=== PATIENT | male | born 1985 | race Caucasian/White ===

== ENCOUNTER 2021-01-11 09:26 | Inpatient (IN) | payer OTHER ==
[~2021-01-11] VITALS: Ht 175.3 cm; Wt 111.6 kg
[2021-01-11 09:47] VITALS: BP 146/81
[2021-01-11 10:16] LABS: ABSOLUTE LYMPHOCYTES 0.8 thou/uL (0.8-5.3); ABSOLUTE MONOCYTES 0.3 thou/uL (0.0-1.2); ABSOLUTE NEUTROPHILS 4.7 thou/uL (1.6-8.1); BASOPHILS 0.6 %; HEMATOCRIT 43.9 % (42.0-52.0); HEMOGLOBIN 15.1 gm/dL (14.0-18.0); LYMPHOCYTES 13.7 %; MCH 28.7 pg (26.0-34.0); MCHC 34.5 g/dL (28.0-37.0); MCV 83.3 fL (80.0-100.0); MONOCYTES 4.7 %; MPV 8.6 fl. (7.2-11.1); NUCLEATED RBCS 0 /100WBC; PLATELET COUNT* 146 thou/uL (150-400); RBC 5.27 mil/uL (4.50-6.00); RDW-CV 12.8 % (10.5-14.5); WBC 5.8 thou/uL (4.0-11.0)
[2021-01-11 10:29] LABS: CREATININE 1.3 mg/dL (0.6-1.3); POTASSIUM 3.7 mmol/L (3.5-5.1)
[2021-01-11 10:34] LABS: ALBUMIN 3.9 g/dL (3.4-5.0); TOTAL BILIRUBIN 0.6 mg/dL (<0.1-1.0); TOTAL PROTEIN 7.8 g/dL (6.4-8.2)
[2021-01-11 14:15] VITALS: BP 130/79
[2021-01-11 14:40] VITALS: BP 124/77
[2021-01-11 20:03] VITALS: BP 108/78
[2021-01-12 00:06] VITALS: BP 116/69
[2021-01-12 04:00] VITALS: BP 109/79
[2021-01-12 07:25] VITALS: BP 109/88
[2021-01-12 08:50] LABS: HEMATOCRIT 42.3 % (42.0-52.0); HEMOGLOBIN 14.7 gm/dL (14.0-18.0); MCH 28.9 pg (26.0-34.0); MCHC 34.9 g/dL (28.0-37.0); MCV 82.9 fL (80.0-100.0); MPV 8.3 fl. (7.2-11.1); NUCLEATED RBCS 0 /100WBC; PLATELET COUNT* 179 thou/uL (150-400); RDW-CV 13.1 % (10.5-14.5); WBC 9.3 thou/uL (4.0-11.0)
[2021-01-12 09:03] LABS: APTT 25.9 Seconds (25.0-31.3); PROTIME 10.3 Seconds (9.20-11.50)
[2021-01-12 09:04] LABS: ALBUMIN 3.2 g/dL (3.4-5.0); CALCIUM 7.9 mg/dL (8.5-10.1); POTASSIUM 3.9 mmol/L (3.5-5.1); TOTAL BILIRUBIN 0.4 mg/dL (<0.1-1.0); TOTAL PROTEIN 7.3 g/dL (6.4-8.2)
[2021-01-12 10:48] LABS: ABSOLUTE MONOCYTES 0.1 thou/uL (0.0-1.2); ABSOLUTE NEUTROPHILS 8.2 thou/uL (1.6-8.1); METAMYELOCYTES 1 %
--- NOTE | 2021-01-12 11:03 | EKG ---
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1985 Requested By: Trevor Fuentes Order Number: [id number] Bernard MD: Michael Broderick Measurements Intervals [place] Rate: 71 P: 9 ID: [id number] QRS: 22 QRSD: 93 T: 2 QT: 379 QTc: 412 Interpretive Statements Sinus rhythm Probable left atrial enlargement No previous ECG available for comparison Electronically Signed On 01-12-2021 11:03:08 CDT by Michael Broderick [email or web address] <ELECTRONICALLY SIGNED> By: Michael Broderick MD, [facility] 01/12/21 1103 1046 1046 Michael Broderick MD, [facility] /EPI
[2021-01-12 11:30] VITALS: BP 125/77
[2021-01-12 15:57] VITALS: BP 127/80
[2021-01-12 20:00] VITALS: BP 119/71
[2021-01-13] VITALS (7 sets, daily range): BP systolic 112–127; BP diastolic 62–82
[2021-01-13 05:59] LABS: HEMATOCRIT 42.4 % (42.0-52.0); HEMOGLOBIN 14.6 gm/dL (14.0-18.0); MCH 28.8 pg (26.0-34.0); MCHC 34.4 g/dL (28.0-37.0); MCV 83.6 fL (80.0-100.0); MPV 8.1 fl. (7.2-11.1); RBC 5.07 mil/uL (4.50-6.00); RDW-CV 13.2 % (10.5-14.5); WBC 7.7 thou/uL (4.0-11.0)
[2021-01-13 06:10] LABS: POTASSIUM 4.1 mmol/L (3.5-5.1)
[2021-01-14] VITALS (8 sets, daily range): BP systolic 100–139; BP diastolic 54–81
[2021-01-14 09:08] LABS: BE 2.5 mmol/L (-2 to +3); pH 7.479 (7.340-7.450)
[2021-01-14 09:09] LABS: PO2 45.2 mmHg (75.0-100.0)
[2021-01-14 10:52] LABS: BE 4.4 mmol/L (-2 to +3); PCO2 45.4 mmHg (35.0-45.0); PO2 68.9 mmHg (75.0-100.0); pH 7.433 (7.340-7.450)
[2021-01-14 10:59] LABS: ABSOLUTE BASOPHILS 0.1 thou/uL (0.0-0.2); ABSOLUTE LYMPHOCYTES 2.3 thou/uL (0.8-5.3); ABSOLUTE NEUTROPHILS 7.1 thou/uL (1.6-8.1); BASOPHILS 0.6 %; LYMPHOCYTES 21.9 %; MCHC 34.5 g/dL (28.0-37.0); MONOCYTES 9.4 %; MPV 8.8 fl. (7.2-11.1); NUCLEATED RBCS 0 /100WBC; POLYS 68.1 %; RBC 5.95 mil/uL (4.50-6.00); RDW-CV 13.2 % (10.5-14.5); WBC 10.5 thou/uL (4.0-11.0)
[2021-01-14 11:03] LABS: HEMOGLOBIN 17.3 gm/dL (14.0-18.0); PLATELET COUNT* 343 thou/uL (150-400)
[2021-01-14 11:12] LABS: ALBUMIN 3.9 g/dL (3.4-5.0); CALCIUM 8.8 mg/dL (8.5-10.1); CREATININE 1.1 mg/dL (0.6-1.3); MAGNESIUM 2.3 mg/dL (1.8-2.4); POTASSIUM 3.9 mmol/L (3.5-5.1); TOTAL BILIRUBIN 0.6 mg/dL (<0.1-1.0); TOTAL PROTEIN 8.4 g/dL (6.4-8.2)
--- NOTE | 2021-01-14 21:14 | CON ---
[address] [address] CONSULTATION Name: MIGUEL ALVES Room: [address] IN [facility]#: [id number] Admission: 01/11/21 Attend Phys: Jt Glover Discharge: Date of : 89 Report #: [id number] THIS REPORT FOR: cc: JAYE - [place] family physician/PCP FAM - No family physician/PCP Samson Whitlock MD ~ DATE OF CONSULTATION: 01/14/2021 REQUESTING PHYSICIAN: Consult has been requested by Dr. Fuentes. INDICATION FOR CONSULTATION: Acute hypoxemic respiratory failure secondary to COVID-19. HISTORY OF PRESENT ILLNESS: A 35-year-old gentleman, he does not speak Luxembourgish, which does limit communication. He does have a history of obesity. His body mass index is 36. Otherwise, he does not have any other significant past medical history. He is not vaccinated for COVID-19. He now was admitted 2 days ago. Presentation was with shortness of breath. He also was having a fever, had chills, was coughing, not much sputum, was dizzy and also had loss of smell. He stated that he was having these symptoms for 2 days. He also had been having headaches. On initial presentation, the patient was hypoxemic on room air; however, was maintaining O2 saturation in the low 90s on 2 liters nasal cannula. Initial O2 saturation on room air was 87%. Since then despite administration of dexamethasone at 6 mg a day and administration of Actemra and a unit of convalescent plasma, there has been a progressive deterioration in his condition. This morning, he needed to be on a BiPAP for shortness of breath, was subsequently being switched over to a heated high-flow nasal cannula when he in fact had a cardiac arrest. There is asystole documented on the rhythm strips as he was on telemetry. The patient briefly did receive chest compressions; however, quickly returned consciousness subsequently without administration of any medications. Since then, the patient has been on BiPAP of 15/7 with 100% FIO2. He is drowsy, but he is fully arousable. He is maintaining O2 saturation with this. He in fact was able to come off the BiPAP long enough to be able to have lunch. He was on a heated high-flow nasal cannula at that time, but he did have lunch this afternoon. At this time point, he is again on 100% BiPAP. He appears to be comfortable on this, is saturating around 94-95%. He continues to remain bradycardic, heart rate is around 53-54. There are occasional pauses reported by the nursing staff; however, I did not see them at the time of my review of the telemetry. REVIEW OF SYSTEMS: The patient's review of systems for 12 [place] [address] CONSULTATION Name: MIGUEL ALVES Room: [address] IN [facility]#: [id number] Admission: 01/11/21 Attend Phys: Jt Glover Discharge: Date of : 89 Report #: [id number] except as mentioned above; however, communication is limited by the language barrier. PAST MEDICAL HISTORY: Obesity, body mass index 36. SOCIAL HISTORY: There is no known history of smoking, ethanol abuse or drug abuse; however, I am not able to ask the patient directly. CURRENT MEDICATIONS: List in [facility] reviewed. HOME MEDICATIONS: He was on no medications at home. ALLERGIES: REPORTEDLY ALLERGIC TO PENICILLINS. I AM NOT AWARE OF THE REACTION. FAMILY HISTORY: in fact is vaccinated for COVID-19. There is no other pertinent family history. PHYSICAL EXAMINATION: GENERAL: He is drowsy. He is fully arousable. He appears to be alert, awake and oriented; however, on account of the fact that he only speaks Bangladeshi, I was able to communicate with him only to a limited extent. VITAL SIGNS: He has a pulse of 52 and a blood pressure of 113/77. He is saturating around 94-95% on a BiPAP of 15/7 100% FIO2, respiratory rate is in the low 20s. He is afebrile now with a temperature of 36.9. Body mass index 36. HEENT: Head is normocephalic and atraumatic. He appears to have a narrow airway. Throat examination, however, is limited. NECK: Does not show raised JVP, asymmetry, mass or lymph nodes. CHEST: Symmetrical expansion on inspection and palpation. On auscultation, breath sounds are bilaterally equal, but decreased. I do not hear any added sounds. HEART: Regular. There is no murmur. ABDOMEN: Mildly distended, nontender. EXTREMITIES: Lower extremities show trace edema. No calf tenderness. SKIN: Dry and intact. NEUROLOGIC: Moves all extremities bilaterally equally and spontaneously with no focal deficit identified. LABORATORY DATA: The patient's chest x-ray shows extensive bilateral infiltrates consistent with ARDS secondary to COVID-19. The patient's lab work is in [facility] and this is also reviewed. Arterial blood gas consistent with acute hypoxemic respiratory failure with a possible component of hypercarbic respiratory failure as well in [facility] reviewed. COVID-19 antigen is positive. D-dimer is only mildly elevated to 0.59. [address] [address] CONSULTATION Name: MIGUEL ALVES Room: [address] IN .R.#: [id number] Admission: 01/11/21 Attend Phys: Jt Glover Discharge: Date of : 89 Report #: [id number] ASSESSMENT AND PLAN: 1. Acute hypoxemic respiratory failure secondary to COVID-19. Continue with BiPAP at current settings while asleep. Also, reasonable to use BiPAP while awake p.r.n. as well. At this time, he does appear to be resting comfortably, although awake on the BiPAP, could be taken off BiPAP and placed on a heated high-flow nasal cannula while awake if tolerated. 2. COVID-19 leading to acute respiratory distress syndrome. Due to worsening hypoxemia, I went ahead and gave him additional dose of dexamethasone at 10 mg and increased his scheduled dose to 8 mg b.i.d. beginning tomorrow. He has already received a dose of Actemra. He remains on remdesivir, which I would also recommend continuing. Watch LFTs. He has received 1 unit of convalescent plasma already. I do not feel strongly either way regarding holding off or administering a second unit. 3. Pulmonary infiltrates. I also agree with Levaquin covering for secondary bacterial infections as currently ordered. We will give him Lactinex for Clostridium difficile prophylaxis. 4. Bradycardia/brief episode of asystole. Recommend watching heart rate. I did in fact order scheduled bronchodilators for treatment of his respiratory failure, which likely will increase his heart rate as well. We will do an echo as well. If he remains bradycardic or if he continues to have pauses on the EKG, then I recommend obtaining a Cardiology consult as well. 5. Mild fluid overload. He received a dose of Lasix today. I agree with the same. We will give him potassium to avoid a drop in potassium level. We will reassess tomorrow for more diuresis. 6. Mild elevation in D-dimer/evaluation for thromboembolic phenomena. We will do venous Dopplers. We are also doing an echo as above. I increased his Lovenox to intermediate dose. My suspicion of pulmonary emboli in fact is low at this time and he also is not stable for transport to CT. Therefore, for now, we will hold off on CT chest. 7. Gastrointestinal prophylaxis. We will order Protonix. 8. Hyperglycemia. He is on an insulin sliding scale. 9. Obesity/suspected underlying obstructive sleep apnea. He is on BiPAP while asleep and p.r.n. as above. The patient is critically ill at this time. Total time spent providing critical care to him today is around 41 minutes. <ELECTRONICALLY SIGNED> By: Samson Whitlock MD 01/14/21 2114 1408 1554Act Whitlock MD /nt
[2021-01-15 00:27] VITALS: BP 107/66
[2021-01-15 04:06] LABS: ABSOLUTE LYMPHOCYTES 0.7 thou/uL (0.8-5.3); ABSOLUTE MONOCYTES 0.8 thou/uL (0.0-1.2); ABSOLUTE NEUTROPHILS 6.5 thou/uL (1.6-8.1); BASOPHILS 0.2 %; HEMATOCRIT 46.6 % (42.0-52.0); HEMOGLOBIN 16.1 gm/dL (14.0-18.0); LYMPHOCYTES 8.2 %; MCH 28.7 pg (26.0-34.0); MCHC 34.6 g/dL (28.0-37.0); MCV 82.9 fL (80.0-100.0); MONOCYTES 10.2 %; MPV 8.2 fl. (7.2-11.1); NUCLEATED RBCS 0 /100WBC; PLATELET COUNT* 322 thou/uL (150-400); POLYS 81.4 %; RBC 5.62 mil/uL (4.50-6.00); RDW-CV 13.3 % (10.5-14.5)
[2021-01-15 04:33] LABS: ALBUMIN 3.6 g/dL (3.4-5.0); CALCIUM 8.4 mg/dL (8.5-10.1); CREATININE 1.2 mg/dL (0.6-1.3); MAGNESIUM 2.5 mg/dL (1.8-2.4); POTASSIUM 4.1 mmol/L (3.5-5.1); TOTAL BILIRUBIN 0.6 mg/dL (<0.1-1.0); TOTAL PROTEIN 7.8 g/dL (6.4-8.2)
[2021-01-15 04:38] VITALS: BP 136/63
[2021-01-15 08:27] VITALS: BP 114/69
--- NOTE | 2021-01-15 11:43 | EKG ---
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1985 Requested By: Trevor Fuentes Order Number: [id number] Reading MD: Yordy Muñiz Measurements Intervals [place] Rate: 45 P: 26 PA: 123 QRS: 53 QRSD: 107 T: 28 QT: 482 QTc: 417 Interpretive Statements Sinus bradycardia Baseline wander in lead(s) V3 Compared to ECG 01/12/2021 10:46:39 Sinus rate has decreased Electronically Signed On 01-15-2021 11:43:07 CDT by Yordy Muñiz [email or web address] <ELECTRONICALLY SIGNED> By: Yordy Muñiz MD, [facility] 01/15/21 1143 6 6 Yordy Muñiz MD, [facility] /EPI
[2021-01-15 12:00] VITALS: BP 122/74
--- NOTE | 2021-01-15 13:55 | 2DMMODE ---
[place] [address] 2 D/M-MODE ECHOCARDIOGRAM Name: MIGUEL ALVES Room: [address] IN [facility]#: [id number] Admission: 01/11/21 Attend Phys: Trevor Fuentes Discharge: Date of : 89 Date of Service: 01/15/21 1355 Report #: [id number] THIS REPORT FOR: cc: JAYE - No family physician/PCP JAYE - No family physician/PCP Yordy Muñiz MD [facility] ~ APPROVED REPORT Study performed: 01/15/2021 10:06:13 EXAM: Comprehensive 2D, Doppler, and color-flow Echocardiogram Patient Location: In-Patient Room #: [facility] Status: routine BSA: 2.26 HR: 59 bpm BP: 114/69 mmHg Rhythm: NSR Other Information Study Quality: Good Indications Dyspnea 2D Dimensions IVSd: 10.99 (7-11mm) LVOT Diam: 21.44 (18-24mm) LVDd: 46.17 mm PWd: 10.20 (7-11mm) Ascending Ao: 27.62 (22-36mm) LVDs: 30.13 (25-40mm) Aortic Root: 30.02 mm Volumes Left Atrial Volume (Systole) LA ESV Index: 13.20 mL/m2 Aortic Valve AoV Peak Hector.: 1.27 m/s AO Peak Gr.: 6.46 mmHg LVOT Max P.51 mmHg AO Mean Gr.: 3.20 mmHg LVOT Mean P.50 mmHg LVOT Max V: 0.94 m/s AO V2 VTI: 24.07 cm LVOT Mean V: 0.55 m/s JAMIE (VTI): 2.80 cm2 LVOT V1 VTI: 18.69 [place] [address] 2 D/M-MODE ECHOCARDIOGRAM Name: MIGUEL ALVES Room: [address] IN [facility]#: [id number] Admission: 01/11/21 Attend Phys: Trevor Fuentes Discharge: Date of : 89 Date of Service: 01/15/21 1355 Report #: [id number] Mitral Valve E/A Ratio: 1.42 MV Decel. Time: 244.49 ms MV E Max Hector.: 0.62 m/s MV PHT: 70.90 ms MVA (PHT): 3.10 cm2 TDI E/Lateral E': 6.20 E/Medial E': 5.64 Medial E' Hector.: 0.11 m/s Lateral E' Hector.: 0.10 m/s Pulmonary Valve PV Peak Hector.: 1.30 m/s PV Peak Gr.: 6.81 mmHg Left Ventricle The left ventricle is normal size. There is normal LV segmental wall motion. There is normal left ventricular wall thickness. Left ventricular systolic function is normal. The left ventricular ejection fraction is within the normal range. LVEF is 55-60%. The left ventricular diastolic function is normal. Right Ventricle The right ventricle is normal size. The right ventricular systolic function is normal. Atria The left atrium size is normal. The right atrium size is normal. Aortic Valve The aortic valve is normal in structure. No aortic regurgitation is present. There is no aortic valvular stenosis. Mitral Valve The mitral valve is normal in structure. There is no mitral valve regurgitation noted. No evidence of mitral valve stenosis. Tricuspid Valve The tricuspid valve is normal in structure. Unable to assess PA pressure. Trace tricuspid regurgitation. Pulmonic Valve The pulmonary valve is normal in structure. Mild [place] [address] 2 D/M-MODE ECHOCARDIOGRAM Name: MIGUEL ALVES Room: [address]#: [id number] Admission: 01/11/21 Attend Phys: Trevor Fuentes Discharge: Date of : 89 Date of Service: 01/15/21 1355 Report #: [id number] Great Vessels The aortic root is normal in size. IVC is normal in size and collapses >50% with inspiration. Pericardium There is no pericardial effusion. <Conclusion> The left ventricle is normal size. There is normal left ventricular wall thickness. Left ventricular systolic function is normal. The left ventricular ejection fraction is within the normal range. LVEF is 55-60%. The left ventricular diastolic function is normal. The right ventricle is normal size. The left atrium size is normal. The aortic valve is normal in structure. The mitral valve is normal in structure. The tricuspid valve is normal in structure. IVC is normal in size and collapses >50% with inspiration. There is no pericardial effusion. There is normal LV segmental wall motion. <ELECTRONICALLY SIGNED> By: Yordy Muñiz MD, FACC 01/15/21 1355 1355 1355 Yordy Muñiz MD, FACC /INF
[2021-01-15 16:00] VITALS: BP 106/73
[2021-01-15 20:00] VITALS: BP 123/72
[2021-01-16 00:04] VITALS: BP 130/70
[2021-01-16 03:45] VITALS: BP 118/72
[2021-01-16 07:55] VITALS: BP 121/71
[2021-01-16 11:02] LABS: CALCIUM 8.4 mg/dL (8.5-10.1); CREATININE 1.1 mg/dL (0.6-1.3); POTASSIUM 4.1 mmol/L (3.5-5.1)
[2021-01-16 12:00] VITALS: BP 117/63
[2021-01-16 13:48] LABS: ALBUMIN 3.5 g/dL (3.4-5.0); DIRECT BILIRUBIN 0.1 mg/dL (<0.1-0.3); TOTAL BILIRUBIN 0.6 mg/dL (<0.1-1.0); TOTAL PROTEIN 7.2 g/dL (6.4-8.2)
[2021-01-16 15:43] VITALS: BP 120/75
[2021-01-16 20:00] VITALS: BP 122/67
[2021-01-17] VITALS (7 sets, daily range): BP systolic 106–126; BP diastolic 58–72
[2021-01-17 04:54] LABS: HEMATOCRIT 43.9 % (42.0-52.0); HEMOGLOBIN 15.2 gm/dL (14.0-18.0); MCH 28.6 pg (26.0-34.0); MCHC 34.5 g/dL (28.0-37.0); MPV 8.4 fl. (7.2-11.1); NUCLEATED RBCS 0 /100WBC; PLATELET COUNT* 361 thou/uL (150-400); RBC 5.29 mil/uL (4.50-6.00); RDW-CV 13.2 % (10.5-14.5); WBC 15.4 thou/uL (4.0-11.0)
[2021-01-17 05:10] LABS: ALBUMIN 3.5 g/dL (3.4-5.0); CALCIUM 8.3 mg/dL (8.5-10.1); MAGNESIUM 2.2 mg/dL (1.8-2.4); POTASSIUM 4.9 mmol/L (3.5-5.1); TOTAL BILIRUBIN 0.6 mg/dL (<0.1-1.0); TOTAL PROTEIN 6.6 g/dL (6.4-8.2)
[2021-01-17 06:08] LABS: ABSOLUTE EOSINOPHILS 0.2 thou/uL (0.0-0.7); ABSOLUTE LYMPHOCYTES 0.6 thou/uL (0.8-5.3); ABSOLUTE MONOCYTES 0.8 thou/uL (0.0-1.2); ABSOLUTE NEUTROPHILS 13.9 thou/uL (1.6-8.1); ANISOCYTOSIS 1+; PLATELET ESTIMATE ADEQUATE; POIKILOCYTOSIS 1+
[2021-01-18 04:57] VITALS: BP 125/73
[2021-01-18 05:45] LABS: ABSOLUTE BASOPHILS 0.2 thou/uL (0.0-0.2); ABSOLUTE LYMPHOCYTES 0.8 thou/uL (0.8-5.3); ABSOLUTE MONOCYTES 0.9 thou/uL (0.0-1.2); ABSOLUTE NEUTROPHILS 17.6 thou/uL (1.6-8.1); BASOPHILS 0.8 %; EOSINOPHILS 0.1 %; HEMATOCRIT 46.5 % (42.0-52.0); HEMOGLOBIN 16.1 gm/dL (14.0-18.0); LYMPHOCYTES 4.1 %; MCH 28.8 pg (26.0-34.0); MCHC 34.5 g/dL (28.0-37.0); MCV 83.5 fL (80.0-100.0); MONOCYTES 4.9 %; MPV 8.4 fl. (7.2-11.1); NUCLEATED RBCS 0 /100WBC; PLATELET COUNT* 370 thou/uL (150-400); POLYS 90.1 %; RBC 5.57 mil/uL (4.50-6.00); RDW-CV 13.4 % (10.5-14.5); WBC 19.6 thou/uL (4.0-11.0)
[2021-01-18 05:59] LABS: CALCIUM 8.2 mg/dL (8.5-10.1); CREATININE 0.9 mg/dL (0.6-1.3); MAGNESIUM 2.2 mg/dL (1.8-2.4); POTASSIUM 4.3 mmol/L (3.5-5.1)
[2021-01-18 08:00] VITALS: BP 132/68
[2021-01-18 12:00] VITALS: BP 131/79
[2021-01-18] MEDS ORDERED: CEFDINIR300 MG PO (12:14)
[2021-01-18 13:22] VITALS: BP 131/79
== END 2021-01-18 16:00 | disposition home or self-care (01) | DRG 177 ==
LOC: M.ERS 09:26 → EDBD 09:26 → M.ORTHSURG 11:02 → M.TBA-ER 11:02 → M.ORTHSURG 14:56
PROVIDERS: Emergency Medicine; Internal Medicine Critical Care Medicine; ADMIT Internal Medicine; ATTEND Internal Medicine
PROC: XW033E5 Introduction of Remdesivir Anti-infective into Peripheral Vein, Percutaneous Approach, New Technology Group 5 (ICD-10-PCS; 2021-01-11)
PROC: 30233N1 Transfusion of Nonautologous Red Blood Cells into Peripheral Vein, Percutaneous Approach (ICD-10-PCS; principal; 2021-01-13)
DX: U07.1 COVID-19 (principal); J96.01 Acute respiratory failure with hypoxia; I46.9 Cardiac arrest, cause unspecified; E11.65 Type 2 diabetes mellitus with hyperglycemia; Z79.4 Long term (current) use of insulin; E66.9 Obesity, unspecified; Z88.0 Allergy status to penicillin; Z68.36 Body mass index [BMI] 36.0-36.9, adult